=== PATIENT | female | born 2000 | race Asian ===

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

== ENCOUNTER 2019-10-07 13:19 | Outpatient (CLI) | payer BC ==
--- NOTE | 2019-10-07 13:32 | RAD ---
Chest 2 views HISTORY: Chest pain. FINDINGS: No comparison. Cardiac silhouette and pulmonary vasculature are unremarkable. Mediastinum i s midline. No confluent airspace consolidation, pneumothorax, or pleural fluid evident. IMPRESSION: No active cardiopulmonary abnormalities are demonstrated.
== END 2019-10-07 13:20 | disposition home or self-care (01) ==
LOC: BICRAD 13:19
PROVIDERS: ATTEND Internal Medicine Cardiovascular Disease
DX: R07.9 Chest pain, unspecified (principal)
CPT/HCPCS: 36415; 71046; 80053; 83520; 85025; 86038; 86225